=== PATIENT | male | born 1995 | race African-American/Black ===

== ENCOUNTER 2020-01-16 17:11 | Emergency (ER) | payer OTHER ==
--- NOTE | 2020-01-16 19:23 | ED Physician Documentation ---
PD HPI MALE - Stated complaint Stated Complaint: MALE - Chief complaint Chief Complaint: General - History obtained from History obtained from: Patient - History of Present Illness Timing - onset: How many days ago (his was diagnosed with PID and reportedly the cultures/vaginal tests obtained from her exam got inadvertently cancelled, so did not get test positive to determine the cause. So patient wanting to be tested and also empirically treated for potential infections.) Timing - details: Other (he does not have any symptoms.) Associated symptoms: No: Dysuria, Urinary frequency, Discharge, Genital sore / lesion PD HPI MALE CONTRIB FACTORS: Sexually active. No: Exposed to STD (he does not think STDs, since only intercourse with his , but the cause of her PID was not determined (BV vs. STD).) Similar symptoms before: Has not had sx before Review of Systems Constitutional: denies: Fever, Chills : denies: Dysuria, Frequency, Discharge Skin: denies: Rash PD PAST MEDICAL HISTORY - Past Medical History Past Medical History: No Cardiovascular: None Respiratory: Asthma Neuro: None Endocrine/Autoimmune: None GI: None : None HEENT: None Psych: None Musculoskeletal: None Derm: Eczema - Past Surgical History Past Surgical History: Yes Ortho: Other - Present Medications Home Medications: Ambulatory Orders Medication Instructions Recorded Confirmed Metronidazole [Flagyl] 500 mg PO BID #14 tablet 01/16/20 - Allergies Allergies/Adverse Reactions: Allergies Allergy/AdvReac Type Severity Reaction Status Date / Time amoxicillin Allergy Unknown Verified 01/16/20 17:31 - Social History Does the pt smoke?: No Smoking Status: Never smoker Does the pt drink ETOH?: Yes ETOH Use: Beer, Liquor Does the pt have substance abuse?: No - Immunizations Immunizations are current?: Yes - POLST Patient has POLST: No PD ED PE NORMAL - Vitals Vital signs reviewed: Yes - General General: Alert and oriented X 3, No acute distress, Well developed/nourished - Male Male : Deferred - Back Back: No CVA TTP Results - Vitals Vitals: Oxygen O2 Source Room air - Labs Labs: Laboratory Tests 01/16/20 17:40 Chlam trachomat DNA PCR NEGATIVE N.gonorrhoeae DNA (PCR) NEGATIVE T. vaginalis (PCR) NEGATIVE PD MEDICAL DECISION MAKING - ED course Complexity details: considered differential (can empirically treat for STDs but also would treat orally for potential BV. ), d/w patient Departure - Departure Disposition: 01 Home, Self Care Clinical Impression: Possible exposure to STD Condition: Stable Record reviewed to determine appropriate education?: Yes Follow-Up: Sampson Garrett MD [Primary Care Provider] - Prescriptions: Metronidazole [Flagyl] 500 mg PO BID #14 tablet Comments: The antibiotic doses here in the ER will cover you for STDs such as chlamydia and gonorrhea. However there would be potential for transmission and exposure of bacterial vaginosis which would be treated with a different antibiotic so use the metronidazole twice daily for a week. The test results we did today will result in a day or 2. We will call you with the results. Discharge Date/Time: 01/16/20 21:13
[2020-01-16] MEDS ORDERED: cefTRIAXone 500 MG VIAL IM STA (20:03)
[2020-01-16] MEDS ORDERED: AZITHROMYCIN 250 MG TABLET PO STA (20:03)
[2020-01-16] MEDS ORDERED: LIDOCAINE 1% 2 ML VIAL MC ONE (20:03)
[2020-01-16 21:02] VITALS: BP 153/63
[2020-01-16 23:31] LABS: TRICHOMONAS VAGINALIS DNA NEGATIVE (NEGATIVE)
== END 2020-01-16 21:13 | disposition home or self-care (01) ==
LOC: ED 17:11
DX: Z20.2 Contact with and (suspected) exposure to infections with a predominantly sexual mode of transmission (principal)
CPT/HCPCS: 87491; 87591; 87661; 96372; 99283; A9270